=== PATIENT | male | born 1930 | race Caucasian/White ===

== ENCOUNTER 2018-01-18 02:43 | Day surgery (SDC) | payer MEDICARE, OTHER ==
[~2018-01-18] VITALS: Ht 180.3 cm; Wt 99.8 kg
[~2018-01-18 02:43] MED LIST: ALLEGRA ALLERG180 MG PO; ASPI81EC PO; CHOL10002 PO; CLOB.05TO EXT; EZET10-10 PO; Ipratropium Bro30 ML; NAPR500 PO; Norco 5-325 Ta1 EACH PO; OMEP20ER PO; TEMOVATE15 GM EXT; XYZAL PO
[2018-01-19 04:17] LABS: BASOPHILS ABSOLUTE AUTO 0.03 K/mm3 (0.00-0.23); BASOPHILS PERCENT AUTO 0 % (0-2); EOSINOPHILS ABSOLUTE AUTO 0.17 K/mm3 (0.00-0.68); EOSINOPHILS PERCENT AUTO 2 % (0-6); Hematocrit 44.3 % (37.0-53.0); Hemoglobin 14.5 g/dL (13.5-17.5); IMMATURE GRAN ABSOLUTE AUTO 0.02 K/mm3 (0.00-0.10); IMMATURE GRAN PERCENT AUTO 0 % (0-1); LYMPHOCYTES ABSOLUTE AUTO 1.93 K/mm3 (0.84-5.20); LYMPHOCYTES PERCENT AUTO 24 % (21-46); MONOCYTES ABSOLUTE AUTO 0.72 K/mm3 (0.16-1.47); MONOCYTES PERCENT AUTO 9 % (4-13); Mean Corpuscular HGB 27.9 pg (26.0-34.0); Mean Corpuscular HGB Conc 32.7 g/dL (31.5-36.5); Mean Corpuscular Volume 85 fL (80-100); Mean Platelet Volume 10.3 fL (9.1-12.4); NEUTROPHILS ABSOLUTE AUTO 5.24 K/mm3 (1.96-9.15); NEUTROPHILS PERCENT AUTO 65 % (41-73); Platelet Count 181 K/mm3 (150-400); RDW Coefficient Variation 13.1 % (11.7-14.2); RDW Standard Deviation 40.6 fL (35.1-46.3); Red Blood Cell Count 5.19 M/mm3 (4.30-5.90); White Blood Cell Count 8.11 K/mm3 (4.00-11.30)
[2018-01-19 04:32] LABS: Anion Gap 5 mmol/L (6-16); Blood Urea Nitrogen 22 mg/dL (8-24); Bun/Creatinine Ratio 22.3 (12.0-20.0); CO2, Blood 29 mmol/L (21-32); Calcium, Blood 8.6 mg/dL (8.5-10.1); Chloride, Blood 108 mmol/L (98-108); Creatinine, Blood 0.99 mg/dL (0.60-1.20); Glomerular Filtration Rate >60 (60-); Glucose, Blood 94 mg/dL (70-99); Sodium, Blood 142 mmol/L (136-145)
[2018-01-19] MEDS ORDERED: Zantac150 MG PO (11:35)
[2018-01-19] MEDS ORDERED: CLOP75 PO (11:46)
== END 2018-01-19 13:04 | disposition home or self-care (01) ==
LOC: MHTC 02:43 → PCU 09:37 → MHTC 01-19 13:04
PROVIDERS: Internal Medicine Interventional Cardiology
PROC: 4A023N7 Measurement of Cardiac Sampling and Pressure, Left Heart, Percutaneous Approach (ICD-10-PCS; principal; 2018-01-18)
PROC: B211YZZ Fluoroscopy of Multiple Coronary Arteries using Other Contrast (ICD-10-PCS; principal; 2018-01-18)
PROC: B218YZZ Fluoroscopy of Left Internal Mammary Bypass Graft using Other Contrast (ICD-10-PCS; principal; 2018-01-18)
PROC: B241ZZ3 Ultrasonography of Multiple Coronary Arteries, Intravascular (ICD-10-PCS; principal; 2018-01-18)
PROC: 027034Z Dilation of Coronary Artery, One Artery with Drug-eluting Intraluminal Device, Percutaneous Approach (ICD-10-PCS; principal; 2018-01-18)
PROC: B213YZZ Fluoroscopy of Multiple Coronary Artery Bypass Grafts using Other Contrast (ICD-10-PCS; principal; 2018-01-18)
DX: I25.810 Atherosclerosis of coronary artery bypass graft(s) without angina pectoris (principal); I25.82 Chronic total occlusion of coronary artery; I35.0 Nonrheumatic aortic (valve) stenosis; I10 Essential (primary) hypertension; E78.5 Hyperlipidemia, unspecified; E66.9 Obesity, unspecified; Z87.891 Personal history of nicotine dependence; E78.00 Pure hypercholesterolemia, unspecified
CPT/HCPCS: 36415; 80048; 85025; 85347; 92978; 93005; 93010; 93455; 99152; 99153; C1725; C1753; C1760; C1769; C1874; C1884; C9604; J1644; J2250; J3010; J7030; Q9967

== ENCOUNTER 2018-01-20 09:57 | Emergency (ER) | payer MEDICARE, OTHER ==
[~2018-01-20] VITALS: Ht 180.3 cm; Wt 95.2 kg
[~2018-01-20 09:57] MED LIST changes: +CLOP75 PO; +Zantac150 MG PO
== END 2018-01-20 11:02 | disposition home or self-care (01) ==
LOC: ER 09:57
DX: R04.0 Epistaxis (principal); I10 Essential (primary) hypertension; Z88.8 Allergy status to other drugs, medicaments and biological substances; Z91.048 Other nonmedicinal substance allergy status; Z79.82 Long term (current) use of aspirin; Z79.01 Long term (current) use of anticoagulants; Z79.899 Other long term (current) drug therapy
CPT/HCPCS: 99281

== ENCOUNTER 2018-03-02 16:17 | Emergency (ER) | payer MEDICARE, OTHER ==
[~2018-03-02] VITALS: Ht 180.3 cm; Wt 98.4 kg
== END 2018-03-02 17:12 | disposition home or self-care (01) ==
LOC: ER 16:17
DX: S51.811A Laceration without foreign body of right forearm, initial encounter (principal); X58.XXXA Exposure to other specified factors, initial encounter; Z88.8 Allergy status to other drugs, medicaments and biological substances; Z79.899 Other long term (current) drug therapy; Z79.84 Long term (current) use of oral hypoglycemic drugs; I10 Essential (primary) hypertension; Z87.891 Personal history of nicotine dependence

== ENCOUNTER 2019-05-05 23:04 | Inpatient (IN) | payer MEDICARE, OTHER ==
[~2019-05-05] VITALS: Ht 177.8 cm; Wt 90.7 kg
[~2019-05-05 23:04] MED LIST changes: -ASPI81EC PO; +Aspir 8181 MG PO; -EZET10-10 PO; +EZETIMIBE-SIMV1 EACH PO
[2019-05-05 23:56] LABS: BASOPHILS ABSOLUTE AUTO 0.02 K/mm3 (0.00-0.23); BASOPHILS PERCENT AUTO 0 % (0-2); EOSINOPHILS ABSOLUTE AUTO 0.03 K/mm3 (0.00-0.68); EOSINOPHILS PERCENT AUTO 1 % (0-6); Hematocrit 47.9 % (37.0-53.0); Hemoglobin 15.6 g/dL (13.5-17.5); IMMATURE GRAN ABSOLUTE AUTO 0.02 K/mm3 (0.00-0.10); IMMATURE GRAN PERCENT AUTO 0 % (0-1); LYMPHOCYTES PERCENT AUTO 6 % (21-46); MONOCYTES ABSOLUTE AUTO 0.04 K/mm3 (0.16-1.47); MONOCYTES PERCENT AUTO 1 % (4-13); Mean Corpuscular HGB 29.6 pg (26.0-34.0); Mean Corpuscular HGB Conc 32.6 g/dL (31.5-36.5); Mean Corpuscular Volume 91 fL (80-100); Mean Platelet Volume 9.9 fL (9.1-12.4); NEUTROPHILS ABSOLUTE AUTO 4.58 K/mm3 (1.96-9.15); NEUTROPHILS PERCENT AUTO 92 % (41-73); Platelet Count 131 K/mm3 (150-400); RDW Coefficient Variation 12.4 % (11.7-14.2); RDW Standard Deviation 41.5 fL (35.1-46.3); Red Blood Cell Count 5.27 M/mm3 (4.30-5.90); White Blood Cell Count 4.99 K/mm3 (4.00-11.30)
[2019-05-06 00:01] LABS: Source, Urine Catheter
[2019-05-06 00:08] LABS: Bilirubin, Urine Neg (Neg); Blood, Urine 2+ (Neg); Glucose Qualitative, Urine Neg (Neg); Ketones, Urine Neg (Neg); Leukocyte Esterase, Urine Neg (Neg); Nitrite, Urine Neg (Neg); Protein, Urine Neg (Neg); Specific Gravity, Urine 1.025 (1.003-1.022); Urobilinogen, Urine NORM (Normal)
[2019-05-06 00:13] LABS: Appearance, Urine Clear (Clear); Color, Urine Yellow (P-Yellow)
[2019-05-06 00:13] LABS: Alanine Aminotransfer (ALT/SGP 28 U/L (12-78); Albumin, Blood 3.1 g/dL (3.4-5.0); Alk Phos 68 U/L (50-136); Anion Gap 7 mmol/L (6-16); Aspartate Aminotrans (AST/SGOT 33 U/L (12-37); Bilirubin, Total 0.6 mg/dL (0.1-1.0); Blood Urea Nitrogen 24 mg/dL (8-24); Bun/Creatinine Ratio 22.4 (12.0-20.0); CO2, Blood 25 mmol/L (21-32); Calcium, Blood 8.6 mg/dL (8.5-10.1); Chloride, Blood 111 mmol/L (98-108); Creatinine, Blood 1.07 mg/dL (0.60-1.20); Globulin, Blood 3.2 g/dL (2.2-4.0); Glomerular Filtration Rate >60 (60-); Glucose, Blood 110 mg/dL (70-99); Potassium, Blood 4.2 mmol/L (3.5-5.5); Sodium, Blood 143 mmol/L (136-145); Total Protein, Blood 6.3 g/dL (6.4-8.2)
[2019-05-06 00:16] LABS: Amorphous Light (0-Heavy); Bacteria Few /hpf; Mucus Light (0-Heavy); Red Blood Cells, Urine 0-2 /hpf (0-2); Squamous Epithelial Cells Rare /hpf (Few); White Blood Cells, Urine Rare /hpf (0-5)
--- NOTE | 2019-05-06 08:34 | NUR ---
ADMIT TO SURGICAL FLOOR RECEIVED REPORT FROM ED [facility] AT 0730. PT ARRIVED VIA GURNEY AT 0750. PT ABLE TRANSFER TO BED IND. W/OUT DIFFICULTY, VSS, A&O X3, AND DENIED ANY PAIN OR DISCOMFORT.
[2019-05-06] MEDS ORDERED: OMEPRAZOLE20 MG (08:44)
--- NOTE | 2019-05-06 12:03 | NUR ---
PT SITTING UP IN BED, EATING LUNCH. VISITING AT BEDSIDE.
--- NOTE | 2019-05-06 13:48 | NUR ---
TROPONIN TROPONIN INCREASED FROM PREVIOUS LAB. NOTIFIED DR FREDERICK. NO NEW ORDERS.
--- NOTE | 2019-05-06 16:04 | NUR ---
Echocardiogram completed.
[2019-05-06 16:26] LABS: U Amphetamine Screen Not Detected; U Barbituate Screen Not Detected; U Benzodiazapine Screen Not Detected; U Buprenorphine Screen Not Detected; U Cannabinoids Screen Not Detected; U Cocaine Screen Not Detected; U Methadone Screen Not Detected; U Methamphetamine Screen Not Detected; U Opiates Screen Not Detected; U Oxycodone Screen Not Detected; U Phencyclidine Screen Not Detected; U Propoxyphene Screen Not Detected
--- NOTE | 2019-05-06 18:36 | NUR ---
SHIFT SUMMARY CONFUSION AND FORGETFULLNESS AT TIMES. ANSWERS QUESTIONS APPROPRIATELY, KNOWS SITUATION BUT FORGOT TAKING MORNING MEDICATIONS. DENIES PAIN, TREMORS, OR FEVER. CRITICAL HIGH LACTIC ACID OF 2.7 AND HIGH TROPONIN 0.0174. MEDICATED PER ORDERS AND RECEIVED ECHO TODAY. PT WAS UNABLE TO VOID, STRAIGHT CATH PRODUCED 600ML OF DARK YELLOW URINE. ABLE TO VOID IND AFTERWARDS. BED ALARM ON WITH CALL LIGHT WITHIN REACH,
[2019-05-07 04:30] LABS: BASOPHILS ABSOLUTE AUTO 0.04 K/mm3 (0.00-0.23); BASOPHILS PERCENT AUTO 0 % (0-2); EOSINOPHILS ABSOLUTE AUTO 0.09 K/mm3 (0.00-0.68); EOSINOPHILS PERCENT AUTO 1 % (0-6); Hematocrit 41.4 % (37.0-53.0); Hemoglobin 13.4 g/dL (13.5-17.5); IMMATURE GRAN ABSOLUTE AUTO 0.02 K/mm3 (0.00-0.10); IMMATURE GRAN PERCENT AUTO 0 % (0-1); LYMPHOCYTES ABSOLUTE AUTO 1.13 K/mm3 (0.84-5.20); LYMPHOCYTES PERCENT AUTO 11 % (21-46); MONOCYTES ABSOLUTE AUTO 0.89 K/mm3 (0.16-1.47); MONOCYTES PERCENT AUTO 9 % (4-13); Mean Corpuscular HGB 29.8 pg (26.0-34.0); Mean Corpuscular HGB Conc 32.4 g/dL (31.5-36.5); Mean Corpuscular Volume 92 fL (80-100); Mean Platelet Volume 10.5 fL (9.1-12.4); NEUTROPHILS ABSOLUTE AUTO 7.95 K/mm3 (1.96-9.15); NEUTROPHILS PERCENT AUTO 79 % (41-73); Platelet Count 100 K/mm3 (150-400); RDW Coefficient Variation 13.2 % (11.7-14.2); RDW Standard Deviation 44.6 fL (35.1-46.3); White Blood Cell Count 10.12 K/mm3 (4.00-11.30)
[2019-05-07 04:46] LABS: Albumin, Blood 2.5 g/dL (3.4-5.0); Anion Gap 5 mmol/L (6-16); Blood Urea Nitrogen 25 mg/dL (8-24); Bun/Creatinine Ratio 25.5 (12.0-20.0); CO2, Blood 25 mmol/L (21-32); Calcium, Blood 7.8 mg/dL (8.5-10.1); Chloride, Blood 114 mmol/L (98-108); Creatinine, Blood 0.98 mg/dL (0.60-1.20); Glomerular Filtration Rate >60 (60-); Glucose, Blood 103 mg/dL (70-99); Phosphorus, Blood 2.1 mg/dL (2.5-4.9); Potassium, Blood 3.7 mmol/L (3.5-5.5); Sodium, Blood 144 mmol/L (136-145)
--- NOTE | 2019-05-07 07:15 | NUR ---
SUMMARY PT ABLE TO VOID AFTER BLADDER SCAN TONIGHT. OCC REPEATS SELF, OTHERWISE ORIENTED AND APPROPRIATE.
--- NOTE | 2019-05-07 08:25 | NUR ---
DR. MEEKS AT BEDSIDE FOR CARDIAC CONSULT AT THIS TIME.
--- NOTE | 2019-05-07 09:52 | NUR ---
PT TO XRAY VIA WHEELCHAIR.
--- NOTE | 2019-05-07 12:09 | NUR ---
SPOUSE AT BEDSIDE. PT SITTING ON EDGE OF BED EATING LUNCH. DENIES ANY DISCOMFORT OR CONCERNS AT THIS TIME. REPORTS PASSING FLATUS.
--- NOTE | 2019-05-07 16:27 | NUR ---
ATTEMPTED TO CALL DR. MARMOLEJO TWICE R/T PATIENT'S ELEVATED BP, UNABLE TO LEAVE VOICEMAIL DUE TO "MAILBOX NOT BEING SET-UP." WILL TRY TO CONTACT HIM AGAIN.
--- NOTE | 2019-05-07 16:38 | NUR ---
SHIFT SUMMARY PT A&O AND AMBULATES WITH IND./STAND BY; WALKING TO BATHROOM/HALLWAY AND UP IN CHAIR DURING SHIFT. SPOUSE AT BEDSIDE T/O SHIFT. DENIED PAIN OR DISCOMFORT TODAY. REPORTS PASSING GAS AND TOLERATING DIET WELL. SBP INCREASED FROM BASELINE TO BETWEEN 150-175, ATTEMPTED TO NOTIFIED PROVIDER TWICE- UNABLE TO LEAVE VOICEMAIL R/T MAILBOX NOT BEING SET-UP. PT IS ASYMPTOMATIC AND DENIES HEADACHE, LIGHTHEADEDNESS, AND DIZZY. WILL CONTINUE TO MONITOR AND ATTEMPT TO NOTIFY PROVIDER AGAIN.
--- NOTE | 2019-05-07 17:02 | NUR ---
PATIENT WORKING WITH THERAPY AT THIS TIME. SPOUSE AT BEDSIDE.
--- NOTE | 2019-05-07 18:08 | NUR ---
MD NOTIFIED MD NOTIFIED OF ELEVATED BP, WILL CONTINUE TO MONITOR PER MD.
[2019-05-08 04:07] LABS: BASOPHILS ABSOLUTE AUTO 0.03 K/mm3 (0.00-0.23); BASOPHILS PERCENT AUTO 0 % (0-2); EOSINOPHILS ABSOLUTE AUTO 0.21 K/mm3 (0.00-0.68); EOSINOPHILS PERCENT AUTO 3 % (0-6); Hematocrit 42.6 % (37.0-53.0); Hemoglobin 14.1 g/dL (13.5-17.5); IMMATURE GRAN ABSOLUTE AUTO 0.03 K/mm3 (0.00-0.10); IMMATURE GRAN PERCENT AUTO 0 % (0-1); LYMPHOCYTES PERCENT AUTO 21 % (21-46); MONOCYTES ABSOLUTE AUTO 0.88 K/mm3 (0.16-1.47); MONOCYTES PERCENT AUTO 12 % (4-13); Mean Corpuscular HGB 29.8 pg (26.0-34.0); Mean Corpuscular HGB Conc 33.1 g/dL (31.5-36.5); Mean Corpuscular Volume 90 fL (80-100); Mean Platelet Volume 10.4 fL (9.1-12.4); NEUTROPHILS ABSOLUTE AUTO 4.63 K/mm3 (1.96-9.15); NEUTROPHILS PERCENT AUTO 64 % (41-73); Platelet Count 105 K/mm3 (150-400); RDW Coefficient Variation 12.8 % (11.7-14.2); RDW Standard Deviation 42.7 fL (35.1-46.3); Red Blood Cell Count 4.73 M/mm3 (4.30-5.90); White Blood Cell Count 7.28 K/mm3 (4.00-11.30)
[2019-05-08 04:26] LABS: Albumin, Blood 2.5 g/dL (3.4-5.0); Anion Gap 4 mmol/L (6-16); Blood Urea Nitrogen 18 mg/dL (8-24); Bun/Creatinine Ratio 19.7 (12.0-20.0); CO2, Blood 27 mmol/L (21-32); Calcium, Blood 8.3 mg/dL (8.5-10.1); Chloride, Blood 110 mmol/L (98-108); Creatinine, Blood 0.91 mg/dL (0.60-1.20); Glomerular Filtration Rate >60 (60-); Glucose, Blood 113 mg/dL (70-99); Phosphorus, Blood 3.2 mg/dL (2.5-4.9); Sodium, Blood 141 mmol/L (136-145)
--- NOTE | 2019-05-08 06:06 | NUR ---
SHIFT SUMMARY LYING IN SEMI FOWLERS WITH EYES CLOSED. HAS BEEN AAO X3 THIS SHIFT. DENIES CURRENT PAIN, FURTHER NEEDS, OR OTHER WANTS AT THIS TIME. SAFETY MEASURES IN PLACE. WILL GIVE HAND OFF TO ONCOMING SHIFT USING SBAR.
--- NOTE | 2019-05-08 07:18 | NUR ---
pt sleeping in bed, bed in lowest position, bed rails up x 2, call light within reach
--- NOTE | 2019-05-08 08:05 | NUR ---
Pt resting comfortably on right side with even, unlabored respirations. Eyes closed. Breakfast tray left at bedside. WCTM.
--- NOTE | 2019-05-08 10:31 | NUR ---
[place] is up ambulating in the hallway with his . No difficulties with balance or ambulation.
--- NOTE | 2019-05-08 17:52 | NUR ---
SHIFT SUMMARY; YAMEL HAS BEEN UP AMBULATING WITH HIS IN THE HALLWAY. HE HAS NEW ORDERS FOR MIRALAX AND STOOL SOFTENERS DUE TO NO BM SINCE MONDAY. HE IS URINATING INDEPENDENTLY AND DENIES ANY DIFFICULTIES. HE DENIES PAIN. HE IS ABLE TO MAKE HIS NEEDS KNOWN. CALL LIGHT IN REACH. HE DENIES ANY COMPLAINTS OR CONCERNS AT THIS TIME.
--- NOTE | 2019-05-09 07:39 | NUR ---
SHIFT SUMMARY LYING IN SEMI FOWLERS WITH EYES CLOSED. HAS BEEN AAO X3 THIS SHIFT. DENIES CURRENT PAIN, FURTHER NEEDS, OR OTHER WANTS AT THIS TIME. INDEPENDENT IN ROOM. SAFETY MEASURES IN PLACE. WILL GIVE HAND OFF TO ONCOMING SHIFT USING SBAR.
[2019-05-09] MEDS ORDERED: AMLO10 PO (12:07)
[2019-05-09] MEDS ORDERED: AZIT250 PO (12:08)
[2019-05-09] MEDS ORDERED: LACT PO (12:09)
[2019-05-09] MEDS ORDERED: CEFU500T30 PO (12:10)
--- NOTE | 2019-05-09 12:50 | NUR ---
PATIENT D/C'D HOME WITH SPOUSE AT THIS TIME; BOTH STATE UNDERSTANDING OF MEDS, F/U APPT, RETURN TO ER IF SX RE OCCUR. DENIES N/PAIN/ OR OTHER C/O.
== END 2019-05-09 12:51 | disposition home or self-care (01) | DRG 177 ==
LOC: ER 23:04 → ERHOLD 23:05 → SURS 05-06 07:48
PROVIDERS: Internal Medicine; Physician Assistant; ADMIT Hospitalist
DX: J69.0 Pneumonitis due to inhalation of food and vomit (principal); G93.41 Metabolic encephalopathy; I21.A1 Myocardial infarction type 2; E87.2 Acidosis; B96.20 Unspecified Escherichia coli [E. coli] as the cause of diseases classified elsewhere; I10 Essential (primary) hypertension; D69.6 Thrombocytopenia, unspecified; K59.00 Constipation, unspecified; I25.10 Atherosclerotic heart disease of native coronary artery without angina pectoris; Z95.1 Presence of aortocoronary bypass graft; Z95.5 Presence of coronary angioplasty implant and graft; Z95.2 Presence of prosthetic heart valve; K21.9 Gastro-esophageal reflux disease without esophagitis; E78.5 Hyperlipidemia, unspecified; I73.9 Peripheral vascular disease, unspecified; F10.129 Alcohol abuse with intoxication, unspecified; Z87.891 Personal history of nicotine dependence; R33.9 Retention of urine, unspecified
CPT/HCPCS: 36415; 51701; 70450; 71045; 71046; 80053; 80069; 81001; 83605; 83880; 84145; 84484; 85025; 87040; 87077; 87186; 93005; 93010; 93306; 96360; 96361; 96365; 96366; 96367; 96372; 97162; 97165; 97530; 97535; 99285-25; G0378; G0480; J0456; J0696; J1650; J7030; J7050; J7060

== ENCOUNTER 2019-07-22 08:28 | Emergency (ER) | payer MEDICARE, OTHER ==
[~2019-07-22] VITALS: Ht 180.3 cm; Wt 99.8 kg
[~2019-07-22 08:28] MED LIST changes: +AMLO10 PO; +AZIT250 PO; +CEFU500T30 PO; +LACT PO; +OMEPRAZOLE20 MG
[2019-07-22] MEDS ORDERED: Keflex500 MG PO (08:42)
== END 2019-07-22 08:53 | disposition home or self-care (01) ==
LOC: ER 08:28
DX: L02.413 Cutaneous abscess of right upper limb (principal); I10 Essential (primary) hypertension; I25.10 Atherosclerotic heart disease of native coronary artery without angina pectoris; E78.5 Hyperlipidemia, unspecified; K21.9 Gastro-esophageal reflux disease without esophagitis; Z88.8 Allergy status to other drugs, medicaments and biological substances; Z91.048 Other nonmedicinal substance allergy status; Z79.899 Other long term (current) drug therapy; Z79.82 Long term (current) use of aspirin; Z87.891 Personal history of nicotine dependence
CPT/HCPCS: 99283